=== PATIENT | female | born 1995 | race Caucasian/White ===

== ENCOUNTER 2020-02-11 14:42 | Outpatient (CLI) | payer BC, SELFPAY ==
[2020-02-11 14:56] LABS: Basophils Absolute Auto 0.1 K/mm3 (0.0-0.1); Basophils Percent Auto 0.7 % (0.2-1.2); Eosinophils Absolute Auto 0.1 K/mm3 (0-0.3); Eosinophils Percent Auto 0.7 % (0-4.4); Hematocrit 43.1 % (37.0-47.0); Hemoglobin 13.2 g/dL (12.0-15.0); Immature Granulocyte Absolute 0.05 K/mm3 (0.00-0.031); Immature Granulocyte Percent A 0.5 % (0-0.5); Lymphocytes Absolute Auto 1.55 K/mm3 (0.9-3.2); Lymphocytes Percent Auto 14.5 % (18.3-44.2); Mean Corpuscular HGB Conc 30.6 g/dl (32-36); Mean Corpuscular Hemoglobin 27.3 pg (26-34); Mean Corpuscular Volume 89.2 fl (80-100); Mean Platelet Volume 10.6 fl (7.4-10.4); Monocytes Absolute Auto 0.5 K/mm3 (0.1-0.6); Neutrophils Absolute Auto 8.4 K/mm3 (1.3-6.7); Neutrophils Percent Auto 78.6 % (45.5-73.1); Platelet Count Result 357 k/mm3 (150-375); Red Blood Count 4.83 M/mm3 (4.2-5.4); Red Cell Distribution Width 14.4 % (11.5-14.5); White Blood Count 10.7 K/mm3 (4.5-10.0)
[2020-02-11 16:57] LABS: Iron 52 ug/dL (37-170)
[2020-02-11 17:01] LABS: Alanine Aminotransferase 17 U/L (4-35); Albumin Level 4.6 g/dL (3.5-5.1); Alkaline Phosphatase 87 U/L (38-126); Aspartate Amino Transferase 19 U/L (14-36); Bilirubin,Total 0.2 mg/dL (0.2-1.3); Blood Urea Nitrogen 10 mg/dL (7-17); Calcium 9.9 mg/dL (8.4-10.2); Carbon Dioxide 26 mmol/L (22-30); Chloride 102 mmol/L (98-107); Estimated Glomerular Filt Rate > 60; Glucose 89 mg/dL (65-105); Potassium 4.7 mmol/L (3.4-5.0); Sodium 137 mmol/L (137-145)
[2020-02-11 17:07] LABS: Percent Iron Saturation 12 % (20-50)
[2020-02-11 18:06] LABS: Folic Acid > 20.0 ng/mL (2.76->20)
[2020-02-18 02:33] LABS: Methylmalonic Acid 100 nmol/L (87-318)
== END 2020-02-11 14:43 | disposition home or self-care (01) ==
LOC: ANHLAB 14:44
PROVIDERS: PCP Family Medicine; Visit Provider Internal Medicine Hematology & Oncology
DX: D50.0 Iron deficiency anemia secondary to blood loss (chronic) (principal)
CPT/HCPCS: 36415; 80053; 82607; 82728; 82746; 83540; 83550; 83921; 85025

== ENCOUNTER 2020-04-26 17:20 | Emergency (ER) | payer BC, SELFPAY ==
[2020-04-26 17:31] VITALS: BP 134/63; PULSE 95; RESP 16; TEMP 36.9; O2SAT 100
--- NOTE | 2020-04-26 17:36 | ED.GENADULT ---
HPI - General Adult General Chief complaint: Back Pain/Injury Stated complaint: low backpain Time Seen by Provider: 04/26/20 17:36 Source: patient Mode of arrival: ambulatory Limitations: no limitations History of Present Illness HPI narrative: 25-year-old female patient presents to the [facility] with complaints of bilateral low back pain but more so on the right side that includes her right hip for the past 2 weeks. Denies any specific injury to the area. Denies any urinary symptoms. Patient she states she has been taking about 400 mg ibuprofen and using ice and heat for her symptoms which has not decrease her pain. Patient states it hurts worse when she is standing and walking. Denies any numbness or tingling down the legs. Patient denies any loss of bowel or bladder control. Patient denies or breast-feeding. Related Data Home Medications Medication Instructions Recorded Confirmed levofloxacin 04/26/20 04/26/20 Allergies Allergy/AdvReac Type Severity Reaction Status Date / Time No Known Allergies Allergy Verified 04/12/20 09:21 Review of Systems Review of Systems: Narrative: CONSTITUTIONAL: Denies fever, chills, or sweats. EYES: Denies visual changes, redness, or discharge. ENT: Denies rhinorrhea, congestion, sore throat, or otalgia. CARDIOVASCULAR: Denies chest pain, palpitations, or edema. RESPIRATORY: Denies cough or dyspnea. GASTROINTESTINAL: Denies abdominal pain, nausea, vomiting, or diarrhea. GENITOURINARY: Denies dysuria or hematuria. SKIN: Denies rash or itching. MUSCULOSKELETAL: Positive low back pain, denies joint pain, or myalgia. NEUROLOGIC: Denies headache, numbness, or weakness. PSYCHIATRIC: Denies anxiety or depression. [facility] Family History Family History Mother Hypertension Social History Social History Smoking status: Current some day smoker Tobacco type: cigarettes Second hand tobacco smoke exposure: No Alcohol intake: current Substance use: never Substance use type: does not use Gender identity (if verbalized by the patient): Female Comments At the time of my signature I agree with nursing past medical history, surgical, social, and family history. There is no relevant family history pertinent to the presenting complaint. Exam Narrative: Exam Narrative: GENERAL: Well-appearing, well-nourished, and in no acute distress. HEAD: Normocephalic, atraumatic. EYES: PERRLA and EOMI. ENT: Nares clear, no rhinorrhea or epistaxis. Mucous membranes moist. NECK: Supple. No lymphadenopathy CHEST: Clear to auscultation. No respiratory distress. HEART: Regular rate and rhythm. No murmur heard. Normal peripheral pulses. ABDOMEN: Soft, nontender, nondistended, normal active bowel sounds. EXTREMITIES: Normal range of motion. No edema. BACK: Patient is able to ambulated without assistance. Pt is seated on the stretcher in no obvouis distress. No surface trauma noted. No muscle tenderness to Palpation. Tenderness noted over palpation of the sciatic nerve on the right side that radiates to the right hip. No spasm or mass. No step-offs or deformity noted to the cervical, thoracic or lumbar spine to firm Palpation at the midline. No CVA tenderness to percussion. No saddle anesthesia. ROM: able to stand erect. Normal flexion, extension, Lateral bending and rotation without limitation or complaint of pain. SKIN: Warm, dry, no rash. NEURO: No focal deficits. Alert and oriented x3. Course Vital Signs Vital signs: Vital Signs Temperature 36.9 C 04/26/20 17:31 Pulse Rate 95 04/26/20 17:31 Respiratory Rate 16 04/26/20 17:31 Blood Pressure 134/63 04/26/20 17:31 Pulse Oximetry 100 04/26/20 17:31 Temperature 36.9 C 04/26/20 17:31 Pulse Rate 95 04/26/20 17:31 Respiratory Rate 16 04/26/20 17:31 Blood Pressure 134/63 04/26/20 17:31 Pulse Oximetry
== END 2020-04-26 17:48 | disposition home or self-care (01) ==
PROVIDERS: Emergency Provider Nurse Practitioner Family; PCP Family Medicine
DX: M54.41 Lumbago with sciatica, right side (principal)
CPT/HCPCS: 99213; G0463

== ENCOUNTER 2020-11-19 12:16 | Emergency (ER) | payer BC, SELFPAY ==
[2020-11-19 12:25] VITALS: BP 113/64; PULSE 89; RESP 16; TEMP 36.7; O2SAT 99
--- NOTE | 2020-11-19 12:31 | ED.URI ---
HPI - URI/Sore Throat General Chief Complaint: Upper Respiratory Infection Stated Complaint: Sore throat Time Seen by Provider: 11/19/20 12:31 Source: patient and RN notes reviewed Mode of arrival: ambulatory Limitations: no limitations History of Present Illness HPI Narrative: 25-year-old female presents with concern for sore throat nasal congestion, and body aches that started 3 days ago. Reports taking [id number] cold and flu medicine with no relief. She denies fever, chills, sweats, cough, shortness of breath, loss of sense of taste and smell, nausea, vomiting, diarrhea. 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 MD elicited complaint: sore throat Related Data Home Medications Medication Instructions Recorded Confirmed gabapentin 100 mg PO HS 11/19/20 11/19/20 Allergies Allergy/AdvReac Type Severity Reaction Status Date / Time No Known Allergies Allergy Verified 11/19/20 12:18 Review of Systems Review of Systems: Narrative: CONSTITUTIONAL: Denies malaise, chills, sweats, or fever. EYES: Denies visual changes, redness, or discharge. ENT: Denies rhinorrhea, sinus pain, otalgia. Reports nasal congestion, sore throat. CARDIOVASCULAR: Denies chest pain, palpitations, or edema. RESPIRATORY: Denies cough or dyspnea. GASTROINTESTINAL: Denies abdominal pain, nausea, vomiting, diarrhea SKIN: Denies rash or itching. MUSCULOSKELETAL: myalgia. NEUROLOGIC: Denies headache. All systems reviewed & are unremarkable except as noted in HPI and below PMFSH Family History Family History Mother Hypertension Social History Social History Smoking status: Current some day smoker Tobacco type: cigarettes Second hand tobacco smoke exposure: No Alcohol intake: current Substance use: never Substance use type: does not use Gender identity (if verbalized by the patient): Female Comments At time of signature, agree with nursing past medical, surgical, social and family history. There is no relevant family history pertinent to the presenting complaint Exam Narrative: Exam Narrative: GENERAL: Well-appearing, well-nourished, and in no acute distress. HEAD: Normocephalic EYES: PERRLA, conjunctivae clear ENT: Nares clear, turbinates erythematous, clear discharge. Mucous membranes moist. TM pearly cameron with sharp light reflex bilaterally; no tragal tenderness. Oropharynx not erythematous without lesions. Tonsils not enlarged and without exudate, no drooling, no hoarseness, no trismus, uvula midline. NECK: Supple. No lymphadenopathy CHEST: Clear to auscultation, breath sounds equal. No wheezing, rhonchi, rales, or stridor. No respiratory distress, speaks in full sentences. HEART: Regular rate and rhythm. No murmur heard. SKIN: Warm, dry, no rash. NEURO: Alert and oriented x3. PSYCH: Normal mood and affect Course Course Emergency Course: Patient is aware of diagnosis, understands and agrees to treatment plan. Anticipatory guidance given. Patient agrees to follow-up as directed and is aware of reasons to seek care at the emergency department. Portions of this record may have been created with voice recognition software Vital Signs Vital signs: Vital Signs Temperature 98.1 F 11/19/20 12:25 Pulse Rate 89 11/19/20 12:25 Respiratory Rate 16 11/19/20 12:25 Blood Pressure 113/64 11/19/20 12:25 Pulse Oximetry 99 11/19/20 12:25 Temperature 98.1 F 11/19/20 12:25 Pulse Rate 89 11/19/20 12:25 Respiratory Rate 16 11/19/20 12:25 Blood Pressure 113/64 11/19/20 12:25 Pulse Oximetry 99 11/19/20 12:25 Reviewed. MDM - URI/Sore Throat MDM Narrative Medical decision making narrative: Differential diagnosis considered: [place] virus, strep pharyngitis, allergic rhinitis, upper respiratory tract infection, sinusitis, rhinosinusitis, nasopharyngitis. viral pharyngitis, otitis me
== END 2020-11-19 12:57 | disposition home or self-care (01) ==
PROVIDERS: Emergency Provider Nurse Practitioner; PCP Family Medicine
DX: B34.9 Viral infection, unspecified (principal); Z20.828 Contact with and (suspected) exposure to other viral communicable diseases; F17.210 Nicotine dependence, cigarettes, uncomplicated
CPT/HCPCS: 87081; 87804; 87880; 99213; G0463

== ENCOUNTER 2020-11-21 11:21 | Outpatient (NON) | payer BC, SELFPAY ==
[2020-11-21 22:00] LABS: SARS-CoV-2 RNA PCR Negative
== END 2020-11-21 11:22 ==
LOC: ANHCOVIDDT 11:22
PROVIDERS: PCP Family Medicine; Visit Provider Nurse Practitioner
DX: R68.89 Other general symptoms and signs (principal); Z20.828 Contact with and (suspected) exposure to other viral communicable diseases
CPT/HCPCS: 87635; C9803; U0003

== ENCOUNTER → 2021-04-18 11:22 | Outpatient (CLI) | payer BC, SELFPAY ==
--- NOTE | ~2021-04-18 | XR_ITS ---
EXAMINATION: XR abdomen/kub 1V INDICATION: Abdominal pain TECHNIQUE: Supine views of the abdomen were obtained on 2 radiographs. COMPARISON: None FINDINGS: There is a moderate volume of colonic stool. No dilated loops of bowel are evident. The vis ualized osseous structures are unremarkable. Phleboliths are noted in the left pelvis. IMPRESSION: 1. Moderate volume of colonic stool. Reviewed, dictated and finalized at location A.
== END ==
PROVIDERS: PCP Family Medicine; Visit Provider Nurse Practitioner Family
DX: R10.9 Unspecified abdominal pain (principal); M54.9 Dorsalgia, unspecified; R68.83 Chills (without fever)
CPT/HCPCS: 74018

== ENCOUNTER → 2021-08-05 01:11 | Outpatient (CLI) | payer BC, SELFPAY ==
[2021-08-05 21:01] LABS: SARS-CoV-2 RNA PCR Negative
== END ==
PROVIDERS: PCP Family Medicine; Visit Provider Obstetrics & Gynecology
DX: Z01.812 Encounter for preprocedural laboratory examination (principal); Z20.828 Contact with and (suspected) exposure to other viral communicable diseases
CPT/HCPCS: C9803; U0003; U0005

== ENCOUNTER 2021-08-08 02:17 | Day surgery (SDC) | payer BC, SELFPAY ==
[2021-08-04 10:50] VITALS: BMI 35.2
[2021-08-08] VITALS (9 sets, daily range): BP systolic 103–130; BP diastolic 54–74; PULSE 65–108; RESP 16–20; TEMP 36.4–36.7; O2SAT 96–100
[2021-08-08] MEDS: ACETAMINOPHEN 500 MG TABLET 1000 MG PO (06:15)
[2021-08-08] MEDS: LACTATED RINGERS 1,000 ML 30 ML IV CONT ×2 (06:40→08:43)
[2021-08-08] MEDS: KETOROLAC 15 MG/ML VIAL (*BKC) IV PUSH (06:45)
--- NOTE | 2021-08-08 07:01 | WPDANESEPPF ---
Anes - Initial Pre Proc Eval Procedure: Operation Date: 08/08/21 07:30 Proposed Procedures p Laparoscopic Left Ovarian Cystectomy - David Montgomery MD Date/Time: 08/08/21 07:01 Surgeon: David Montgomery MD Pre Op Diagnosis: Acute Pelvic Pain Patient Data Age: 26 Gender: F Height: 1.52 m Weight: 85.6 kg Last Vital Signs Temp 36.4 C L 08/08/21 06:18 Pulse 94 08/08/21 06:18 Resp 20 08/08/21 06:18 BP 121/61 08/08/21 06:18 Pulse Ox 100 08/08/21 06:18 Allergies Allergy/AdvReac Type Severity Reaction Status Date / Time No Known Allergies Allergy Verified 08/08/21 06:18 Home Medications Medication Instructions Recorded Confirmed Type No Home Medications 08/04/21 08/04/21 History Patient hx anesthesia problems: none Family hx anesthesia problems: none PMFSH Past Medical History Medical History Anxiety BMI 35.0-35.9,adult BMI 36.0-36.9,adult Surgical History Surgical History Hx of breast reduction, elective Family History Family History Mother Hypertension Father No problems noted. Sibling No problems noted. 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 Questions were solicited and answers provided to the satisfaction of the patient/family/POA.
--- NOTE | 2021-08-08 07:13 | WPDHPUPDATE1 ---
History and Physical Update Update Date/Time: 08/08/21 07:13 History and Physical has been reviewed, including an updated exam of the patient. There are NO changes in the patient's condition. Risks, benefits, and alternatives have been discussed and questions answered. Patient agrees to proceed with procedure.
--- NOTE | 2021-08-08 08:39 | W.PM.PROC2 ---
Procedure Note - Detailed Date of Procedure 08/08/21 Pre-op Diagnosis Acute Pelvic Pain, Ovarian Cyst Post-op Diagnosis same Procedure Performed Laparoscopic Ovarian Cystectomy Surgeon David Montgomery MD Anesthesia general Indications Pelvic pain Findings 45 cm left ovarian cyst containing mucinous fluid, otherwise anatomy appears normal, there was some increased vascularity in the posterior cul-de-sac at the broad ligaments distally Description of Procedure The patient was taken to the operating room. She was prepped and draped in the dorsal lithotomy position after induction general anesthesia. A 5 mm incision was made with a scalpel on the abdominal skin in the left upper quadrant of the abdomen. A 5 mm trocar was inserted into the intra-abdominal cavity under direct visualization the scope. In the same fashion a 5 mm left lower quadrant trocar was inserted and a 5 mm infraumbilical trocar was inserted. Left ovarian cyst was removed sharp and blunt dissection. Cautery was used to make hemostatic. Hemoderm was placed in the cyst cavity to make it hemostatic. The pelvis was irrigated. The pneumoperitoneum was reduced. The trocars were removed. Skin was closed with subcuticular 4 micro. The patient's incisions were covered with Dermabond. She was taken recovery room in stable condition. Sponge lap and needle counts were correct x2. Estimated Blood Loss 20 Drains No Packing No Pathology yes Complications No immediate complications Condition stable Disposition same day
[2021-08-08] MEDS: fentaNYL CITRATE INJ (*CRX) 100 MCG/2 ML VIAL 25 MCG IV PUSH ×3 (08:54→09:02)
[2021-08-08] MEDS: oxyCODONE HCL (*CRX) 5 MG TAB IR PO (09:33)
== END 2021-08-08 10:35 | disposition home or self-care (01) ==
PROVIDERS: PCP Family Medicine; Visit Provider Obstetrics & Gynecology
PROC: (CPT 49320; principal; 2021-08-08 07:30)
DX: R10.2 Pelvic and perineal pain (principal); D27.1 Benign neoplasm of left ovary; F41.9 Anxiety disorder, unspecified; Z87.891 Personal history of nicotine dependence; E66.9 Obesity, unspecified; Z68.36 Body mass index [BMI] 36.0-36.9, adult
CPT/HCPCS: 58662; 88305; 88307; A9270; C9803; J1100; J1170; J1885; J2250; J2405; J2704; J2710; J3010; J7030; J7120; U0003; U0005

== ENCOUNTER 2021-09-24 15:47 | Emergency (ER) | payer BC, SELFPAY ==
--- NOTE | 2021-09-24 15:52 | ED.ABDPAIN ---
HPI - Abdominal Pain General Chief Complaint: Back Pain/Injury Stated Complaint: Lower back pain,Abdominal Pain Source: patient and RN notes reviewed Mode of arrival: ambulatory Limitations: no limitations History of Present Illness HPI narrative: Jaclyn is a 26-year-old female patient who ambulated into the [facility] today. Patient states she is having lower abdominal pain and back pain. Patient states the symptoms are similar to her last UTI. Patient has taken 4 at home test which were all negative. Patient had a mucoid tumor removed [address] Truong. Patient states she also was tested for STDs 1 to 2 months ago and is requesting additional testing today. Patient is sitting in chair smiling and playing on phone. Patient states she has no vaginal discharge or odor. She denies any vaginal symptoms. MD elicited complaint: abdominal pain Related Data Home Medications Medication Instructions Recorded Confirmed No Home Medications 09/24/21 09/24/21 Allergies Allergy/AdvReac Type Severity Reaction Status Date / Time No Known Allergies Allergy Verified 09/24/21 15:56 Review of Systems Review of Systems: CONSTITUTIONAL: Denies body aches, fever, chills, or sweats. EYES: Denies visual changes, redness, or discharge. ENT: Denies rhinorrhea, congestion, sore throat, or otalgia. CARDIOVASCULAR: Denies chest pain, palpitations, or edema. RESPIRATORY: Denies cough or dyspnea. GASTROINTESTINAL: + low abdominal pain, denies nausea, vomiting, or diarrhea+ constipation GENITOURINARY: +dysuria denies hematuria. SKIN: Denies rash, itching, or wounds. MUSCULOSKELETAL: Denies back pain, joint pain, or myalgia. NEUROLOGIC: Denies headache, numbness, tingling, or weakness. PSYCH: Denies depression or anxiety. All systems reviewed & are unremarkable except as noted in HPI and below PMFSH Past Medical History Medical History Anxiety BMI 35.0-35.9,adult BMI 36.0-36.9,adult Surgical History Surgical History Hx of breast reduction, elective Family History Family History Mother Hypertension Father No problems noted. Sibling No problems noted. 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 HEAD: Normocephalic, atraumatic. EYES: EOMI. No redness or drainage. Conjunctivae normal. ENT: Mucous membranes pink and moist. Nares clear. No rhinorrhea. NECK: Normal AROM. Supple. No lymphadenopathy. CHEST: No respiratory distress. Clear to auscultation. ABDOMEN: Soft, nondistended, pain with palpation suprapubic and LLQ; normal active bowel sounds. MUSCULOSKELETAL: No bony tenderness. EXTREMITIES: Normal range of motion. No edema. SKIN: Warm, dry, no rash. Capillary refill normal. Normal skin turgor. NEURO: No focal deficits. Alert and oriented x3. Gait steady. PSYCH: Normal affect. No signs of depression or anxiety. Course Vital Signs Vital signs: Vital Signs Temperature 37.1 C 09/24/21 15:56 Pulse Rate 95 09/24/21 15:56 Respiratory Rate 18 09/24/21 15:56 Blood Pressure 139/91 H 09/24/21 15:56 Pulse Oximetry 100 09/24/21 15:56 Temperature 37.1 C 09/24/21 15:56 Pulse Rate 95 10
[2021-09-24 15:56] VITALS: BP 139/91; PULSE 95; RESP 18; TEMP 37.1; O2SAT 100
== END 2021-09-24 16:43 | disposition home or self-care (01) ==
PROVIDERS: Emergency Provider Nurse Practitioner Family; PCP Family Medicine
DX: R10.31 Right lower quadrant pain (principal)
CPT/HCPCS: 81003; 87491; 87591; 87661; 99213; G0463

== ENCOUNTER 2023-11-07 12:07 | Emergency (ER) | payer OTHER, SELFPAY ==
[2023-11-07 12:22] VITALS: BP 114/83; PULSE 86; RESP 16; TEMP 36.6; O2SAT 100
--- NOTE | 2023-11-07 12:27 | ED.URI ---
HPI - URI/Sore Throat General Chief Complaint: Upper Respiratory Infection Stated Complaint: cough,tired Source: patient, RN notes reviewed and old records reviewed Mode of arrival: ambulatory Limitations: no limitations History of Present Illness HPI Narrative: 28-year-old female presents to [facility] with complaints cough and chest congestion for 1 week. Patient states cough is dry. Patient denies sinus congestion, fevers, myalgias, sore throat, any other complaints of. Related Data Allergies Allergy/AdvReac Type Severity Reaction Status Date / Time No Known Allergies Allergy Verified 03/14/23 14:52 Review of Systems Constitutional: Constitutional: Reports no additional constitutional complaints, Denies chills, Denies fatigue, Denies fever(s) and Denies headache(s) Eyes: Eyes: Reports no additional eye complaints ENT: Reports system reviewed and no additional complaints, except as documented, Denies nasal congestion and Denies nasal discharge Cardiovascular: Cardiovascular: Reports no additional cardiovascular complaints Respiratory: Respiratory: Reports as per HPI, Reports chest congestion, Reports cough, Denies pain on inspiration, Denies pain with cough and Denies dyspnea Neurologic: Reports system reviewed and no additional complaints, except as documented PMFSH Past Medical History Medical History Anxiety BMI 35.0-35.9,adult BMI 36.0-36.9,adult BMI 38.0-38.9,adult BMI 39.0-39.9,adult History of benign ovarian tumor Ovarian tumor Surgical History Surgical History Hx of breast reduction, elective Family History Family History Mother Hypertension Social History Social History Smoking packs per day: 0.5 Smoking cigarettes per day: 10.0 Years smoked: 6 Smoking pack-years: 3.00 Smoking status: Former smoker Tobacco type: cigarettes Second hand tobacco smoke exposure: No Smoking end date: 08/04/15 Alcohol intake: current Drinks per week: 2 Substance use: never Substance use type: does not use Lack of Transportation: No Lack of Food: Never True Current Housing: I Have Housing Concerned About Future Housing: No Difficulty Paying Gas/Electric Bills: No Difficulty Paying for Meds: No Currently Unemployed: No Education: High School Diploma/GED Difficulty w/ Childcare or Family Care: No Living arrangements: with family Occupation/Education: occupation 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 There is no relevant family history pertinent to the patient complaint. Exam Const: General: cooperative, healthy appearing, no acute distress and well nourished Nutritional Appearance: well nourished Orientation/consciousness: patient oriented x3 Limitations: no limitations HENMT: Head: normal to inspection and normocephalic Ears: external ears normal, TM's normal bilaterally, mastoids normal and Abnormal EAC present Face/Nose/Sinus: normal facial exam Face and sinus: normal facial exam Mouth: Yes Normal oral and palatal mucosa present, Yes oropharynx normal and Yes moist mucous membranes Throat: posterior oropharynx normal, tonsils normal, uvula midline and no uvular edema Eyes: General: appearance normal, both eyes and all related structures Sclera: sclerae normal Pupils: Equal, round and reactive pupils present Resp: Effort & Inspection: normal respiratory effort, able to speak in complete sentences, no audible wheezes, no cough, no respiratory distress and no retractions Auscultation: clear to auscultatio
== END 2023-11-07 12:38 | disposition home or self-care (01) ==
PROVIDERS: Emergency Provider Registered Nurse; PCP Family Medicine
DX: J40 Bronchitis, not specified as acute or chronic (principal); Z87.891 Personal history of nicotine dependence
CPT/HCPCS: 99213; G0463

== ENCOUNTER 2024-03-26 13:45 | Emergency (ER) | payer OTHER, SELFPAY ==
[2024-03-26 14:00] VITALS: BP 120/59; PULSE 101; RESP 18; TEMP 36.7; O2SAT 100
--- NOTE | 2024-03-26 14:21 | ED.URI ---
HPI - URI/Sore Throat General Chief Complaint: Upper Respiratory Infection Stated Complaint: cough,chest hurts Time Seen by Provider: 03/26/24 14:20 Source: patient and RN notes reviewed Mode of arrival: ambulatory Limitations: no limitations History of Present Illness HPI Narrative: 29-year-old female presents concern for 2 week history of cough, nasal congestion, nasal drainage. Reports cough is getting worse. She reports feeling short of breath with wheezing. MD elicited complaint: cough and nasal congestion Related Data Allergies Allergy/AdvReac Type Severity Reaction Status Date / Time No Known Allergies Allergy Verified 03/26/24 14:04 Review of Systems Review of Systems: CONSTITUTIONAL: Denies malaise, chills, sweats, or fever. EYES: Denies visual changes, redness, or discharge. ENT: Reports rhinorrhea, congestion, sinus pain CARDIOVASCULAR: Denies chest pain, palpitations, or edema. RESPIRATORY: Reports cough, dyspnea. GASTROINTESTINAL: Denies abdominal pain, nausea, vomiting, diarrhea SKIN: Denies rash or itching. MUSCULOSKELETAL: Denies myalgia. NEUROLOGIC: Denies headache. All systems reviewed & are unremarkable except as noted in HPI and below PMFSH Past Medical History Medical History Anxiety BMI 35.0-35.9,adult BMI 36.0-36.9,adult BMI 38.0-38.9,adult BMI 39.0-39.9,adult History of benign ovarian tumor Ovarian tumor Surgical History Surgical History Hx of breast reduction, elective Family History Family History Mother Hypertension Social History Social History Smoking packs per day: 0.5 Smoking cigarettes per day: 10.0 Years smoked: 6 Smoking pack-years: 3.00 Smoking status: Former smoker Tobacco type: cigarettes Second hand tobacco smoke exposure: No Smoking end date: 08/04/15 Alcohol intake: current Drinks per week: 2 Substance use: never Substance use type: does not use Lack of Transportation: No Lack of Food: Never True Current Housing: I Have Housing Concerned About Future Housing: No Difficulty Paying Gas/Electric Bills: No Difficulty Paying for Meds: No Currently Unemployed: No Education: High School Diploma/GED Difficulty w/ Childcare or Family Care: No Living arrangements: with family Occupation/Education: occupation 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 There is no relevant family history pertinent to the presenting complaint Exam Narrative: GENERAL: Well-appearing, well-nourished, and in no acute distress. HEAD: Normocephalic EYES: PERRLA, conjunctivae clear ENT: Nares clear, turbinates edematous and erythematous. Mucous membranes moist. TM pearly san with dull light reflex bilaterally; no tragal tenderness. Oropharynx not erythematous without lesions. Tonsils not enlarged and without exudate, no drooling, no hoarseness, no trismus, uvula midline. NECK: Supple. No lymphadenopathy CHEST: Clear to auscultation, breath sounds equal. No wheezing, rhonchi, rales, or stridor. No respiratory distress, speaks in full sentences. HEART: Regular rate and rhythm. No murmur heard. SKIN: Warm, dry, no rash. NEURO: Alert and oriented x3. PSYCH: Normal mood and affect Course Course Emergency Course: Patient is aware of diagnosis, understands and agrees to treatment plan. Anticipatory guidance given. Patient agrees to follow-up as directed and is aware of reasons to seek care at the emergency department. Portions of this record may have been created with voice recognition software Level of Care: Express
== END 2024-03-26 14:33 | disposition home or self-care (01) ==
PROVIDERS: Emergency Provider Nurse Practitioner
DX: J32.9 Chronic sinusitis, unspecified (principal); J40 Bronchitis, not specified as acute or chronic; Z87.891 Personal history of nicotine dependence
CPT/HCPCS: 99213; G0463